=== PATIENT | male | born 1970 | race Caucasian/White ===

== ENCOUNTER 2016-10-26 17:53 | Emergency (ER) ==
--- NOTE | 2016-10-26 18:16 | PROVIDER DOCUMENTATION ---
HPI-Respiratory General - General Chief Complaint: Cough Stated Complaint: FLU LIKE SX Time Seen by Provider: 10/26/16 18:05 Source: patient Allergies/Adverse Reactions: Patient Allergies Allergy/AdvReac Type Severity Reaction Status Date / Time No Known Allergies Allergy Verified 10/03/15 11:28 - History of Present Illness-Resp Nature of Presenting Problem: 46 y/o WM c/o cough, congestion, fever/chills, sore throat, sinus pain x 6 days. Pt states that he has not taken temp at home. Reports cough is productive of a green/brown mucus. States has had influenza vaccine prior to 15 October. Denies any abd. pain, N/V/D/C. Denies any sick contacts. Review of Systems - Adult - REVIEW OF SYSTEMS - ADULT Constitutional: reports: see HPI, chills, fever Eyes: reports: no symptoms reported. denies: blurred vision, double vision Ears, Nose, Mouth & Throat: reports: throat pain. denies: ear pain, nose pain Cardiovascular: reports: no symptoms reported. denies: chest pain, palpitations Respiratory: reports: see HPI, cough. denies: shortness of breath, wheezing Gastrointestinal: reports: no symptoms reported. denies: abdominal pain, nausea , vomiting Genitourinary: reports: no symptoms reported. denies: dysuria, frequency Musculoskeletal: reports: no symptoms reported. denies: joint pain, joint swelling Integumentary: reports: no symptoms reported. denies: nail changes, rash Neurological: reports: no symptoms reported. denies: numbness, paresthesia Psychiatric: reports: no symptoms reported Endocrine: reports: no symptoms reported. denies: cold intolerance, heat intolerance Hematologic/Lymphatic: reports: no symptoms reported. denies: easy bruising, prolonged bleeding Allergic/Immunologic: reports: no symptoms reported All Other Systems: Reviewed and Negative Past History - Adult - PAST MEDICAL HISTORY-ADULT Review of Records: reports: Nursing Assessment Review, Medications Reviewed Cardiovascular: reports: denies history Respiratory: reports: denies history Gastrointestinal: denies: GERD, GI bleed, hepatitis Genitourinary: denies: incontinence, kidney disease, kidney stones, polycystic kidney disease, retention, prostatitis Musculoskeletal: reports: denies history. denies: chronic pain Neurological: reports: denies history, Seizures/Epilepsy Psychiatric: reports: denies history Endocrine/Immune: reports: denies history - PRIOR SURGERIES/PROCEDURES Surgical/Procedure History: reports: cholecystectomy - IMMUNIZATION STATUS Childhood Immunizations: See Nurse Assessment Flu Vaccine: See Nurse Assessment - FAMILY HISTORY Family History: reviewed, not pertinent - SOCIAL HISTORY Smoking: denies Physical Exam-General - PHYSICAL EXAM-ADULT Initial Vital Signs Reviewed: Yes - CONSTITUTIONAL General Appearance: alert, mild distress - EYES Eyes: pink conjunctivae - HEAD, EARS, NOSE, MOUTH & THROAT HENMT: moist mucous membranes, pharyngeal erythema. negative: tonsillar exudate - NECK Neck: supple, normal inspection. negative: lymphadenopathy - RESPIRATORY Respiratory: lungs clear, normal breath sounds. negative: crackles, rales, rhonchi, stridor, wheezing - CARDIOVASCULAR Cardiovascular: regular rate, rhythm. negative: bradycardia, tachycardia - LYMPHATIC Lymphatic: no adenopathy - MUSCULOSKELETAL Extremity: normal gait - SKIN Integumentary: normal color, normal turgor, warm/dry - NEUROLOGIC Neurologic: negative: aphasia - PSYCHIATRIC Psych/Mental Status: normal mood/affect, normal thought content, normal thought process, oriented x 3 Progress - PLAN OF CARE/RESULTS Progress/Plan/Lab Results: Orders Category Date Time Status CHEST-2 VIEWS [RAD] Stat Exams 10/26/16 18:03 Taken INFLUENZA SCREEN A/B Stat Lab 10/26/16 18:05 Completed Vital Signs Temp Pulse Resp BP Pulse Ox 10/26/16 19:32 98.2 F 68 16 116/87 97 10/26/16 18:01 98.3 F 73 18 135/96 96 No Known Allergies Allergy (Verified 10/03/15 11:28) Levetiracetam [Keppra] 500 mg PO BID #0 tablet 07/29/13 Amoxicillin [Amoxil] 875 mg PO BID #14 tablet 10/26/16 Guaifenesin/D-Methorphan Hb/PE [Deconex Dmx Tablet] 1 each PO TID #30 tablet 03/07 Prednisone 20 mg PO DAILY #12 tablet 10/26/16 Discussed medication use and f/u with pt. Influenza negative. - XRAY 1 XRAY Study: Chest XRAY Interpretation: No PNA Departure - Departure Time of Disposition Order: 19:20 DIAGNOSIS: URI (upper respiratory infection) Qualifiers: URI type: unspecified URI Qualified Code(s): J06.9 - Acute upper respiratory infection, unspecified Disposition: HOME 01 Certified Medical Emergency: Emergent Condition: Stable Additional Instructions: Take medications as directed. Drink plenty of fluids. Tylenol or motrin for fever/bodyaches. Follow up with PCP in 7 days for recheck. ED Follow Up Instructions: You have been treated by a care provider in the Emergency Department. These instructions are being provided to you so you can have an understanding of how to care for yourself upon discharge. Upon discharge from the Emergency Department, you are responsible for making arrangements for follow-up care by a physician of your choice. Take all prescribed medications as directed. Return to the Emergency Department immediately for any new or worsening symptoms. You may call the Physician Referral phone number at [phone] to obtain a list of Physicians who are taking new patients. Prescriptions: Amoxicillin [Amoxil] 875 mg PO BID #14 tablet Guaifenesin/D-Methorphan Hb/PE [Deconex Dmx Tablet] 1 each PO TID #30 tablet Prednisone 20 mg PO DAILY #12 tablet Referrals: None,PCP [Primary Care Provider] - Instructions: Upper Respiratory Infection, Adult, [id number] Attestation - Physician/ Mid-level Attestation Patient care was provided by Mid-level provider (DEPENDENCY PROGRAM DIRECTOR/PA):: Yes Mid-level provider:: Jenn Fisher Mid-level documentation review:: The Mid-level provider documentation, treatment plan and medical decision making was reviewed by the physician who agrees with all treatment and medical decision making by the [facility].
[2016-10-26 19:33] VITALS: BP 116/87
--- NOTE | 2016-10-27 07:57 | Diag Imaging Result Document ---
PROCEDURE NAME: CHEST-2 VIEWS - 10/26/2016 2 VIEWS OF THE CHEST: FINDINGS: There is no evidence of acute cardiac or pulmonary disease. The inspiration is better than on 08/23/2015. IMPRESSION: Normal chest.
== END 2016-10-26 19:33 | disposition home or self-care (01) ==
LOC: ED 17:53
DX: J06.9 Acute upper respiratory infection, unspecified (principal); R05 Cough; R09.81 Nasal congestion; R50.9 Fever, unspecified; J02.9 Acute pharyngitis, unspecified; R56.9 Unspecified convulsions; Z79.899 Other long term (current) drug therapy
CPT/HCPCS: 71020; 87804; 99282